=== PATIENT | male | born 1980 | race American Indian/Alaskan Native ===

== ENCOUNTER 2020-01-16 12:46 | Outpatient (CLI) | payer OTHER ==
--- NOTE | 2020-01-16 19:01 | Ultrasound Report ---
ULTRASOUND RENAL INDICATION: MICROSCOPIC HEMATURIA. COMPARISON: No relevant prior imaging study available. FINDINGS: RIGHT KIDNEY: Size: 11 cm. Echogenicity: Normal. Cortical thickness: Normal. Stones: Probable small stones. Hydronephrosis: None. Cyst or mass: None. LEFT KIDNEY: Size: 11.4 cm. Echogenicity: Normal. Cortical thickness: Normal. Stones: Multiple stones measuring up to 1.3 cm. Hydronephrosis: None. Cyst or mass: 1.4 cm cyst in the medial kidney. Urinary Bladder: No significant abnormality. Free Fluid: None. Additional Findings: None. IMPRESSION 1. Bilateral nonobstructing intrarenal stones. No hydronephrosis. 2. Simple left renal cyst. Signer Name: Tom Cardona MD Signed: 01/16/2020 6:57 PM Workstation Name: [id number]
== END 2020-01-16 12:47 | disposition home or self-care (01) ==
LOC: US 12:46
PROVIDERS: ATTEND Pediatrics
DX: N20.0 Calculus of kidney (principal); N28.1 Cyst of kidney, acquired; R31.21 Asymptomatic microscopic hematuria
CPT/HCPCS: 76770